=== PATIENT | male | born 1940 | race Caucasian/White ===

== ENCOUNTER 2023-07-29 12:45 | Day surgery (SDC) | payer MEDICARE, OTHER ==
[2023-07-29] MEDS: Polymyxin B/Trimethoprim 10 ML Bottle EYERT SCH (12:59)
[2023-07-29] MEDS: Brimonidine 0.2% Ophth Soln 5 ML Bottle EYERT SCH (13:05)
[2023-07-29] MEDS: Phenylephrine 2.5% Ophth Soln 2 ML Bot EYERT SCH (13:09)
[2023-07-29] MEDS: Tropicamide 1% Ophth Soln 3 ML Bottle EYERT SCH (13:12)
[2023-07-29] MEDS: Tetracaine HCl/PF 0.5% 4 ML Bottle EYEBOTH SCH (14:11)
[2023-07-29] MEDS: Lidocaine 1% PF 2 ML SDV INJECT SCH (14:33)
[2023-07-29] MEDS: Pilocarpine 4% Ophth Soln 15 ML Bot EYERT SCH (14:47)
[2023-07-29] MEDS: Cefuroxime 10 MG/ML SYRINGE EYERT SCH (14:47)
[2023-07-29 14:58] VITALS: BP 190/53; PULSE 68
== END 2023-07-29 14:57 | disposition home or self-care (01) ==
LOC: JD.SDS 12:45
PROVIDERS: ATTEND Ophthalmology
DX: H26.9 Unspecified cataract (principal)
CPT/HCPCS: A9270-GY; J0697; J3490

== ENCOUNTER 2023-08-26 12:49 | Day surgery (SDC) | payer MEDICARE, OTHER ==
[~2023-08-26 12:49] MED LIST: Cefuroxime 10 MG/ML SYRINGE EYELF SCH
[2023-08-26] MEDS: Polymyxin B/Trimethoprim 10 ML Bottle EYELF SCH (13:02)
[2023-08-26] MEDS: Brimonidine 0.2% Ophth Soln 5 ML Bottle EYELF SCH (13:04)
[2023-08-26] MEDS: Phenylephrine 2.5% Ophth Soln 2 ML Bot EYELF SCH (13:20)
[2023-08-26] MEDS: Tropicamide 1% Ophth Soln 3 ML Bottle EYELF SCH (13:25)
[2023-08-26] MEDS: Tetracaine HCl/PF 0.5% 4 ML Bottle EYEBOTH SCH (14:13)
[2023-08-26] MEDS: Lidocaine 1% PF 2 ML SDV INJECT SCH (14:30)
[2023-08-26] MEDS: Pilocarpine 4% Ophth Soln 15 ML Bot EYELF SCH (14:54)
[2023-08-26 15:05] VITALS: BP 170/82; PULSE 73
== END 2023-08-26 15:02 | disposition home or self-care (01) ==
LOC: JD.SDS 12:49
PROVIDERS: ATTEND Ophthalmology
DX: H25.812 Combined forms of age-related cataract, left eye (principal); H18.413 Arcus senilis, bilateral; H02.831 Dermatochalasis of right upper eyelid; H02.834 Dermatochalasis of left upper eyelid; H43.813 Vitreous degeneration, bilateral; H16.103 Unspecified superficial keratitis, bilateral; H16.223 Keratoconjunctivitis sicca, not specified as Sjogren's, bilateral; E78.00 Pure hypercholesterolemia, unspecified; I10 Essential (primary) hypertension; Z96.1 Presence of intraocular lens; Z87.891 Personal history of nicotine dependence; Z79.899 Other long term (current) drug therapy
CPT/HCPCS: A9270-GY; J3490

== ENCOUNTER 2023-11-22 17:54 | Emergency (ER) | payer MEDICARE, OTHER ==
[2023-11-22] MEDS: HYDROmorphone 0.5 MG/0.5 ML Syringe IVPUSH ONE (19:05)
[2023-11-22] MEDS: Sodium Chloride 0.9% 10 ML Syringe FLUSH PRN (19:07)
[2023-11-22 20:05] VITALS: BP 173/62; PULSE 65
== END 2023-11-22 20:05 ==
LOC: JD.ED 17:54
DX: S72.142A Displaced intertrochanteric fracture of left femur, initial encounter for closed fracture (principal); I10 Essential (primary) hypertension; E78.00 Pure hypercholesterolemia, unspecified; Z90.49 Acquired absence of other specified parts of digestive tract; Z79.82 Long term (current) use of aspirin; Z79.899 Other long term (current) drug therapy; Z79.1 Long term (current) use of non-steroidal anti-inflammatories (NSAID); Z88.5 Allergy status to narcotic agent; Z88.6 Allergy status to analgesic agent; Z91.048 Other nonmedicinal substance allergy status; Z88.1 Allergy status to other antibiotic agents; W01.0XXA Fall on same level from slipping, tripping and stumbling without subsequent striking against object, initial encounter
CPT/HCPCS: 73551; 96374; 99284; J1170; J3490; 99285

== ENCOUNTER 2024-05-10 10:28 | Emergency (ER) | payer MEDICARE, OTHER ==
[2024-05-10 12:33] LABS: BASOPHILS PERCENT AUTO 0.1 % (0.0-1.0); EOSINOPHILS ABSOLUTE AUTO 0.1 K/mm3 (0.0-0.4); HEMATOCRIT 19.8 % (42.0-52.0); IMMATURE GRAN ABSOLUTE AUTO 0.02 K/mm3 (0.00-0.05); IMMATURE GRAN PERCENT AUTO 0.3 % (0.0-0.4); LYMPHOCYTES ABSOLUTE AUTO 0.6 K/mm3 (1.0-4.8); LYMPHOCYTES PERCENT AUTO 8.6 % (24.0-44.0); MEAN CORPUSCULAR HEMOGLOBIN 32.8 pg (28.0-32.0); MEAN CORPUSCULAR HGB CONC 31.3 g/dl (32.0-36.0); MEAN CORPUSCULAR VOLUME 104.8 fl (83.0-99.0); MEAN PLATELET VOLUME 10.7 fl (9.4-12.4); MONOCYTES ABSOLUTE AUTO 0.6 K/mm3 (0.0-0.8); MONOCYTES PERCENT AUTO 8.2 % (0.0-8.0); NEUTROPHILS ABSOLUTE AUTO 5.8 K/mm3 (1.8-7.7); NEUTROPHILS PERCENT AUTO 81.8 % (41.0-71.0); PLATELET COUNT,PLT 183 K/mm3 (150-400); RED BLOOD CELL COUNT 1.89 M/mm3 (4.52-5.90); WHITE BLOOD CELL COUNT,WBC 7.09 K/mm3 (3.9-11.3)
[2024-05-10 12:50] LABS: HEMOGLOBIN 6.2 gm/dl (14.0-18.0)
[2024-05-10 12:51] LABS: ALBUMIN 3.1 g/dl (3.4-5.0); ANION GAP 16.4 (5-15); BILIRUBIN TOTAL 0.3 mg/dL (0.2-1.0); BUN/CREATININE RATIO 19.2 (14-18); C-REACTIVE PROTEIN 3.46 mg/dL (<0.30); CALCIUM 8.5 mg/dL (8.5-10.1); CREATININE 2.5 mg/dL (0.7-1.3); EST CRCL DRUG DOSING (CG) 22.26 mL/min; POTASSIUM,K 4.4 mEq/L (3.5-5.1); PROTEIN TOTAL,TP 6.3 g/dl (6.4-8.2)
[2024-05-10 12:55] LABS: MAGNESIUM 2.1 mg/dL (1.8-2.4)
[2024-05-10] MEDS: Sodium Chloride 0.9% 1,000 ML IV SCH (14:33)
[2024-05-10] MEDS: Furosemide 40 MG/4 ML VIAL IVPUSH ONE (17:17)
[2024-05-10] MEDS: amLODIPine 10 MG Tab PO ONE (18:29)
[2024-05-11] MEDS: Furosemide 40 MG/4 ML VIAL IVPUSH ONE (00:03)
[2024-05-11 00:19] VITALS: BP 135/69; PULSE 85
== END 2024-05-11 00:19 | disposition home or self-care (01) ==
LOC: JD.ED 10:28
DX: I13.0 Hypertensive heart and chronic kidney disease with heart failure and stage 1 through stage 4 chronic kidney disease, or unspecified chronic kidney disease (principal); I50.9 Heart failure, unspecified; N18.4 Chronic kidney disease, stage 4 (severe); D50.9 Iron deficiency anemia, unspecified; R70.0 Elevated erythrocyte sedimentation rate; E78.00 Pure hypercholesterolemia, unspecified; Z90.49 Acquired absence of other specified parts of digestive tract; Z79.82 Long term (current) use of aspirin; Z79.899 Other long term (current) drug therapy; Z88.1 Allergy status to other antibiotic agents; Z88.8 Allergy status to other drugs, medicaments and biological substances; Z88.5 Allergy status to narcotic agent; Z91.048 Other nonmedicinal substance allergy status
CPT/HCPCS: 36415; 36430; 80053; 83540; 83735; 83880; 84466; 85025; 85652; 86140; 86850; 86900; 86901; 86922; 96361; 96374; 96376; 99284; A9270; J1940; J7030; P9016

== ENCOUNTER 2024-06-28 09:58 | Day surgery (SDC) | payer MEDICARE ==
[2024-06-28] MEDS ORDERED: Propofol 200 MG/20 ML SDV ONE ×2 (10:31→11:36)
[2024-06-28 11:01] LABS: HEMATOCRIT 27.5 % (42.0-52.0); HEMOGLOBIN 8.7 gm/dl (14.0-18.0); MEAN CORPUSCULAR HEMOGLOBIN 31.1 pg (28.0-32.0); MEAN CORPUSCULAR HGB CONC 31.6 g/dl (32.0-36.0); MEAN CORPUSCULAR VOLUME 98.2 fl (83.0-99.0); MEAN PLATELET VOLUME 9.8 fl (9.4-12.4); PLATELET COUNT,PLT 174 K/mm3 (150-400); WHITE BLOOD CELL COUNT,WBC 4.29 K/mm3 (3.9-11.3)
[2024-06-28] MEDS ORDERED: Lactated Ringers 1,000 ML IV ONE (11:15)
[2024-06-28 11:44] LABS: A/G RATIO 1.1 (1-2); ALBUMIN 3.4 g/dl (3.4-5.0); ANION GAP 15.1 (5-15); BILIRUBIN TOTAL 0.3 mg/dL (0.2-1.0); CALCIUM 8.9 mg/dL (8.5-10.1); CREATININE 2.1 mg/dL (0.7-1.3); EST CRCL DRUG DOSING (CG) 24.54 mL/min; POTASSIUM,K 5.1 mEq/L (3.5-5.1); PROTEIN TOTAL,TP 6.4 g/dl (6.4-8.2)
[2024-06-28 13:46] LABS: BAND PERCENT MAN 2 % (0-10); BASOPHILS PERCENT MAN 0 (0.2-1.2); EOSINOPHILS PERCENT MAN 1 % (0.8-7.0); LYMPHOCYTES % ATYPICAL MANUAL 0 %; LYMPHOCYTES PERCENT MAN 11 % (20-40); MONOCYTES PERCENT MAN 0 % (2-10); PLATELET COUNT ESTIMATE DECREASED
[2024-06-28 14:39] VITALS: BP 170/65; PULSE 66
== END 2024-06-28 14:00 | disposition home or self-care (01) ==
LOC: JD.SDS 09:58
PROVIDERS: ATTEND Surgery
DX: K29.50 Unspecified chronic gastritis without bleeding (principal); K22.70 Barrett's esophagus without dysplasia; K31.A0 Gastric intestinal metaplasia, unspecified; K44.9 Diaphragmatic hernia without obstruction or gangrene; K64.8 Other hemorrhoids; K57.30 Diverticulosis of large intestine without perforation or abscess without bleeding; I12.9 Hypertensive chronic kidney disease with stage 1 through stage 4 chronic kidney disease, or unspecified chronic kidney disease; N18.32 Chronic kidney disease, stage 3b; E78.2 Mixed hyperlipidemia; Z87.891 Personal history of nicotine dependence; Z79.899 Other long term (current) drug therapy
CPT/HCPCS: 36415; 43239; 45378; 80053; 85007; 85027; J2704; J7120; 00813; 99100